=== PATIENT | male | born 1960 | race African-American/Black ===

== ENCOUNTER 2016-07-06 18:24 | Observation (INO) ==
--- NOTE | 2016-07-06 19:04 | Emergency Department Note ---
Marcie Couch Emily, am scribing for, and in the presence of, Timbo Chandler MD 18: 48. Ramesh Couch Robert M, MD, personally performed the services described in this documentation, ascribed by Rabia Jack in my presence, and it is both accurate and complete 904 . Arrival - Arrival Chief Complaint: Non-Specific Stated Complaint: diabetes ED Nursing Triage Note: Pt c/o High blood sugar (227), diarrhea and weakness since yesterday. Mode of Arrival: Ambulatory Limitations: No Limitations Source: Patient - History of Present Illness HPI Narrative: Pt is a 56 y/o male who came to ED with c/o diarrhea and fatigue that onset last night. Pt has associated sxs of lower abdomen pain, cold intolerance, and elevated glucose, but denies vomiting. Pt is IDDM. He reports having recent weight loss from 200 lbs in weight to now 126. He describes his diarrhea as watery but denies blood in stool. He hasn't taken abx recently either. Pt's glucose in ED, is 236. No other complaint/pain in ED. Pt is a smoker. Onset (ago): day(s) Consistency: constant Severity: moderate Severity scale (1-10): 6 Quality: aching Allergies/Adverse Reactions: Allergies Allergy/AdvReac Type Severity Reaction Status Date / Time No Known Allergies Allergy Unverified 05/03/16 17:43 Home Medications: Home Medications Medication Instructions Recorded Confirmed Type Atorvastatin [Lipitor] 20 mg PO BEDTIME 07/06/16 07/06/16 History Glimepiride 2 mg PO DAILY W/BREAKFAST 07/06/16 07/06/16 History Review of System - Review of System 12 point system: reviewed and no additional remarkable complaints except as stated - Review of System Constitutional: Present: weakness, weight loss. Absent: fever Gastrointestinal: Present: abdominal pain, diarrhea (watery, no blood). Absent : nausea, vomiting Skin: Absent: rash Neurological: Absent: headache Endocrine: Present: cold intolerance, fatigue Medical,Surgical,& Family Hx - Medical History Endocrine: History of: Diabetes Mellitus (NIDDM) - Social History Smoking Status: Current every day smoker Exam Vital Signs: Vital Signs Temperature 97.3 F L 07/06/16 19:15 Pulse Rate 89 07/06/16 19:15 Respiratory Rate 18 07/06/16 19:15 Blood Pressure 101/68 07/06/16 19:15 O2 Sat by Pulse Oximetry 99 07/06/16 19:14 - General General appearance: alert, in no apparent distress, other (bitemporal wasting) - Head Head exam: Present: atraumatic, normocephalic - Eye Eye exam: Present: PERRL, EOMI, scleral icterus, other (sunken orbits) - ENT ENT exam: Present: mucous membranes moist. Absent: mucous membranes dry - Neck Neck exam: Present: full ROM. Absent: tenderness - Chest Chest inspection: Present: symmetric chest wall rise. Absent: tenderness - Respiratory Respiratory exam: Present: normal lung sounds bilaterally. Absent: respiratory distress - Cardiovascular Cardiovascular exam: Present: regular rate, normal rhythm, normal heart sounds - Abdominal Exam Abdominal exam: Present: soft, tenderness (diffusely through lower quadrants), guarding. Absent: distention, rebound - Extremities Exam Extremities exam: Present: full ROM. Absent: tenderness, pedal edema - Neurological Exam Neurological exam: Present: alert, oriented X3, CN II-XII intact. Absent: motor sensory deficit - Psychiatric Psychiatric exam: Present: normal affect, normal mood - Skin Skin exam: Present: warm, dry Course - Consultations Consultation #1: Dr. Huerta will admit the patient to the hospitalist service. Time: 20:22 Results - Labs CBC & BMP: 07/06/16 18:52 07/06/16 18:52 - Diagnostic Findings Procedure: CT Abdomen and Pelvis: image reviewed by me (Findings suggestive of ampullary mass. Intrahepatic biliary ductal dilatation, common bile duct dilatation, and main pancreatic duct dilatation/distention noted.) Disposition Clinical Impression: Biliary obstruction, Hyperglycemia, Diarrhea Case discussed with: patient, patient's family Disposition: Still a Patient Condition: Stable Time of Disposition: 20:22
[2016-07-06 19:12] LABS: Basophils % 0.8 % (0.0-0.8); Eosinophils # 0.1 10*3/uL (0.0-0.87); Eosinophils % 1.9 % (0.00-10.9); Hematocrit 37.2 VOL% (42.0-52.0); Hemoglobin 12.2 GM/DL (14.0-18.0); Immature Granulocytes % 0.4 %; Immature Granulocytes Absolute 0.02 #; Lymphocytes % 19.9 % (21.2-54.2); Mean Corpuscular HGB Conc 32.8 GM/DL (32-36); Mean Corpuscular Hemoglobin 27 PG (27-34); Mean Corpuscular Volume 81.9 FL (87-102); Mean Platelet Volume 10.5 FL (9.6-12.0); Monocytes # 0.7 10*3/uL (0.11-0.8); Monocytes % 13.8 % (1.7-12.7); Neutrophils # 3.3 10*3/uL (1.4-7.4); Neutrophils % 63.2 % (38.7-73.9); Platelet Count 283 T/CUMM (130-400); Red Blood Count 4.54 MC/CUMM (3.8-5.5); Red Cell Distribution Width 15.1 % (9.3-17.3); White Blood Count 5.2 T/CUMM (4-12)
[2016-07-06 19:23] LABS: Apearance,Urine Slightly Hazy (Clear); Bilirubin,Urine Negative (Negative); Blood, Urine Small mg/dL (Negative); Calcium Oxalate Crystals,Urine Occasional /HPF (Few); Glucose,Urine (UA) >=500 mg/dL (Negative); Ketones,Urine Negative (Negative); Mucus,Urine Few /LPF (Occasional); Nitrite,Urine Negative (Negative); Protein,Urine 100 MG/DL; RBC,Urine 4 /HPF (0-4); Squamous Epithelial Cell,Urine Occasional /HPF (0-10); Urine Specific Gravity 1.021 (1.001-1.035); WBC,Urine 29 /HPF (0-6)
[2016-07-06 19:24] LABS: Urine Color Dark yellow (Yellow)
[2016-07-06 19:28] LABS: Barbiturates Screen,Urine Negative (Negative); Benzodiazepines Screen,Urine Negative (Negative); Cannabinoid Screen,Urine Positive (Negative); Opiate Screen,Urine Negative (Negative); Phencyclidine Screen,Urine Negative (Negative)
[2016-07-06 19:37] LABS: Calcium 8.5 MG/DL (8.5-10.1); Magnesium 2.4 MG/DL (1.8-2.4); Osmolality,Calculated 284.4 MOS/KG (273-304); Potassium 3.6 MMOL/L (3.5-5.1)
--- NOTE | 2016-07-06 19:41 | XRay Report ---
History: Chest pain. Shortness of breath Date: 07/06/2016 Study: Chest x-ray AP portable Comparison exam: May 03, 2016 chest x-ray The cardiomediastinal silhouette and pulmonary vasculature are unremarkable. The lungs and pleural spaces are clear. The osseous structures are unremarkable. Impression: No acute cardiopulmonary process. No significant interval change PROCEDURE INTERPRETED AT [facility] DEPARTMENT OF RADIOLOGY Final Report Signed by: Dr. Briana De La Rosa
[2016-07-06] MEDS ORDERED: GLUCAGON 1 MG VIAL IM PRN (20:41)
[2016-07-06] MEDS ORDERED: DEXTROSE 50% 25 GM/50 ML VIAL IV PRN (20:41)
[2016-07-06 20:44] LABS: Albumin 2.6 G/DL (3.4-5.0); Bilirubin,Direct 0.9 MG/DL (0.0-0.20); Bilirubin,Total 1.9 MG/DL (0.2-1.0); Total Protein 7.2 G/DL (6.4-8.3)
--- NOTE | 2016-07-06 20:45 | CT Report ---
History: Abdominal pain. Weight loss. Diarrhea Date: 07/06/2016 Study: CT abdomen and pelvis with IV contrast Comparison exam: No previous CT abdomen and pelvis Technique: Spiral CT sections were obtained from the lung bases to the pubic symphysis following 100 mL Omnipaque [address] exam was performed using one or more of the following dose reduction techniques: Automated exposure control, adjustment of the mA and/or kV according to patient size, or use of iterative reconstruction technique. CT abdomen: The partially visualized lung bases are clear. There is abnormal intrahepatic and extrahepatic biliary dilatation as well as pancreatic ductal dilatation. There is an approximately 2.3 cm area of abnormal soft tissue density which causes obstruction of the common bile duct. This presumably represents pancreatic carcinoma or cholangiocarcinoma. There is abnormal increased density in the fat surrounding the celiac artery. The fat planes are indistinct in this region and in the jonn hepatis region. There is moderate distention of the gallbladder. There is no focal hepatic mass. The abnormal soft tissue density in the region of the common bile duct is inseparable from the head of the pancreas. There is some lymphadenopathy in the jonn hepatis region. The spleen, adrenal glands are unremarkable. There is bilateral renal excretion without hydronephrosis. The kidneys are normal except for a rounded 8 mm simple cyst inferiorly in the left kidney. There is no aortic aneurysm. There is no price bowel obstruction. There is a paucity of abdominal fat present. CT pelvis: There is moderate nonspecific diffuse prominence of the prostate gland. There is no soft tissue mass in the pelvis. Impression: Presumed pancreatic malignancy causing common bile duct and pancreatic ductal obstruction. Jonn hepatis lymphadenopathy. 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 Briana De La Rosa
--- NOTE | 2016-07-06 20:52 | Hospitalist History & Physical ---
Assessment and Plan - Time spent with patient Time spent with patient: Greater than 30 minutes (1) Pancreas malignancy Status: Acute Assessment and plan: Presumably the cause of his weight loss and abnormal liver labs. Will consult GI and surgery and keep the patient n.p.o. at midnight. Current Visit: Yes (2) Diabetes mellitus Status: Acute Assessment and plan: Sliding scale insulin and Accu-Cheks. Current Visit: Yes (3) Diarrhea Status: Acute Assessment and plan: We will perform stool studies. Current Visit: Yes History of Present Illness Chief complaint: Weight loss and diarrhea. History of present illness: Mr. Javier is a 56 year old male with diabetes mellitus who presents with weight loss and diarrhea. Patient states he began having weight loss since last. Not exactly sure when it started. He weight 210 pounds and currently weighs 125. He states his appetite has not changed and eats a lot and still has not gained any weight. He was recently diagnosed with diabetes in April. He has also been having diarrhea off and on for several months however for the last few days has been persistent. Describes it as watery. He has been having intolerance to the cold for "a good while." He also endorses abdominal pain for several months off and on in his lower quadrants. He states if he eats too much he develops bloating. CT was performed in the ER which reveals possible pancreatic malignancy. Home Medications Medication Instructions Recorded Confirmed Type Atorvastatin [Lipitor] 20 mg PO BEDTIME 07/06/16 07/06/16 History Glimepiride 2 mg PO DAILY W/BREAKFAST 07/06/16 07/06/16 History Allergies Allergy/AdvReac Type Severity Reaction Status Date / Time No Known Allergies Allergy Unverified 05/03/16 17:43 Medical,Surgical,& Family Hx - Medical History Endocrine: History of: Diabetes Mellitus (NIDDM) - Social History Smoking Status: Current every day smoker 12 point system: reviewed and no additional remarkable complaints except as stated - Constitutional Constitutional: Present: fatigue, lethargy, weakness, weight loss. Absent: anorexia, chills, excessive sweating, weight gain - EENT Nose, mouth and throat: Absent: dysphagia, epistaxis, headache(s), hoarseness, lip swelling, nasal congestion, neck mass, neck pain, sore throat, throat swelling, tongue swelling, vertigo, other - Cardiovascular Cardiovascular: Absent: chest pain at rest, chest pain with activity, claudication, diaphoresis, dyspnea, dyspnea on exertion, edema, radiating jaw, neck or arm pain, orthopnea, palpitations - Gastrointestinal Gastrointestinal: Present: abdominal pain, bloating, change in bowel habits, cramping, diarrhea, early satiety. Absent: coffee ground emesis, constipation, dyspepsia, dysphagia, fecal incontinence, heartburn, hematemesis, hematochezia, loose stools, melena, nausea, odynophagia, vomiting, jaundice - Endocrine Endocrine: Present: cold intolerance. Absent: heat intolerance, polydipsia, polyphagia, polyuria Exam - Constitutional Vitals: Period Temp Pulse Resp BP Sys/Botello Pulse Ox Last 24 Hr 97.3 F-97.3 F 78-89 17-18 99-120/60-80 98-100 General appearance: no acute distress, under weight - Head Head exam: Present: normal inspection, normocephalic, atraumatic - Eye Eye exam: Present: EOMI Pupils: Present: LELA - ENT ENT exam: Present: normal exam - Neck Neck exam: Present: normal inspection - Respiratory Respiratory exam: Present: clear to auscultation bilaterally. Absent: rhonchi, wheezes - Cardiovascular Cardiovascular exam: Present: regular rate and rhythm. Absent: gallop, rubs, systolic murmur - GI/Abdominal GI/Abdominal exam: Present: normal bowel sounds, soft. Absent: distended, firm , guarding, tenderness (Lower quadrants), rebound - Extremities Exam Extremities exam: Present: normal inspection. Absent: calf tenderness, edema Results - Labs CBC & BMP: 07/06/16 18:52 07/06/16 18:52 Lab Results: I have reviewed the past 24 hour labs
[2016-07-06] MEDS: INSULIN LISPRO 100 UNIT/ML SUBCUT SCH (22:08)
[2016-07-07 06:29] LABS: Basophils % 0.5 % (0.0-0.8); Eosinophils # 0.3 10*3/uL (0.0-0.87); Eosinophils % 4.3 % (0.00-10.9); Hematocrit 35.5 VOL% (42.0-52.0); Hemoglobin 11.4 GM/DL (14.0-18.0); Immature Granulocytes % 0.2 %; Immature Granulocytes Absolute 0.01 #; Lymphocytes # 1.5 10*3/uL (1.4-4.0); Lymphocytes % 26.4 % (21.2-54.2); Mean Corpuscular HGB Conc 32.1 GM/DL (32-36); Mean Corpuscular Hemoglobin 26 PG (27-34); Mean Corpuscular Volume 82.2 FL (87-102); Mean Platelet Volume 9.7 FL (9.6-12.0); Monocytes # 0.9 10*3/uL (0.11-0.8); Monocytes % 16.2 % (1.7-12.7); Neutrophils % 52.4 % (38.7-73.9); Platelet Count 246 T/CUMM (130-400); Red Blood Count 4.32 MC/CUMM (3.8-5.5); White Blood Count 5.8 T/CUMM (4-12)
[2016-07-07 06:58] LABS: Burr Cells 1+; Eosinophils 4 % (0-10); Hypochromasia 1+; Lymphocytes 25 % (20-55); Platelet Estimate Adequate; Segmented Neutrophils 55 % (50-85); Total Cells Counted 100
[2016-07-07 07:14] LABS: Albumin 2.5 G/DL (3.4-5.0); Bilirubin,Total 1.5 MG/DL (0.2-1.0); Calcium 8.3 MG/DL (8.5-10.1); Osmolality,Calculated 279.1 MOS/KG (273-304); Potassium 3.1 MMOL/L (3.5-5.1); Thyroid Stimulating Hormone 2.12 uIU/ml (0.358-3.74); Total Protein 6.6 G/DL (6.4-8.3)
[2016-07-07] MEDS ORDERED: SODIUM CHLORIDE 0.9% 1,000 ML IV SCH (08:30)
[2016-07-07] MEDS: INSULIN LISPRO 100 UNIT/ML SUBCUT SCH ×4 (08:46→20:10)
--- NOTE | 2016-07-07 10:06 | Gastrointestinal Consult Note ---
Assessment and Plan (1) Abdominal pain Status: Acute Assessment and plan: 07/07-several month history of abdominal pain now to the left upper quadrant, with significant weight loss over the last 8 months. On admission, findings of elevated LFTs and CT of abdomen results noted below. Stool studies pending. Obtain tumor markers and plan for tentative ERCP, following Dr. De La Rosa's exam , tomorrow to further evaluate. Plan an addendum to followed by Dr. De La Rosa. Current Visit: Yes History of Present Illness Chief complaint: Abdominal pain History of present illness: Mr. Javier is a 56 year old male who was admitted to the hospital on yesterday with several month history of abdominal pain and weight loss. Patient states that approximately 8 months ago he was diagnosed with diabetes mellitus. Starting around this time he began to lose weight despite a good appetite and eating several times a day. He states that he weighed 210 pounds and now he is currently down to 125 pounds. He did not modify his diet when he was diagnosed with diabetes. Patient states not long after that he began having episodes of generalized abdominal pain. He states the pain was not associated with any other symptoms and was not precipitated by any known factors. He states since onset the pain now has become more localized to the left upper quadrant. Denies pain radiating to his back. Denies nausea vomiting associated with this. Denies fever or chills. Denies night sweats. Denies history of colon cancer or familial cancer that he can recall. He states that he has had diarrhea on and off for the past several months which is worse in the last few days. He describes it as watery and frequent but denies any melena or hematochezia. He does complain of some abdominal bloating when he eats at times. He states that he is continually told his PCP regarding his abdominal pain but no scans were done until this admission. He denies a history of alcohol use however states he does smoke half a pack of cigarettes a week and has a history of marijuana use for appetite and pain control per patient. He was positive for marijuana on his admission drug screen. On admission he was noted to have elevated LFTs with bilirubin at 1.9, AST 493, ALT 385, and alkaline phosphatase at 1225. Lipase is 131. CT of abdomen with IV contrast noted to show a presumed pancreatic malignancy, measuring 2.3 cm, causing obstruction of the common bile duct. No focal hepatic mass the abnormal soft tissue density noted to be inseparable from the head of the pancreas with froylan hepatitis lymphadenopathy. He has noted this morning to have hypokalemia and Dr. Eldridge to address this. Home Medications Medication Instructions Recorded Confirmed Type Atorvastatin [Lipitor] 20 mg PO BEDTIME 07/06/16 07/06/16 History Glimepiride 2 mg PO DAILY W/BREAKFAST 07/06/16 07/06/16 History Allergies Allergy/AdvReac Type Severity Reaction Status Date / Time No Known Allergies Allergy Unverified 05/03/16 17:43 Medical,Surgical,& Family Hx - Medical History Endocrine: History of: Diabetes Mellitus (NIDDM) - Social History Smoking Status: Current every day smoker Frequency of Alcohol Use: None Type of Drug Use: None 12 point system: reviewed and no additional remarkable complaints except as stated - Constitutional Constitutional: Present: as per HPI, weight loss - EENT Eyes: Present: as per HPI Ears: Present: as per HPI Nose, mouth and throat: Present: as per HPI - Cardiovascular Cardiovascular: Present: as per HPI - Respiratory Respiratory: Present: as per HPI - Gastrointestinal Gastrointestinal: Present: as per HPI, abdominal pain - Genitourinary Genitourinary: Present: as per HPI - Musculoskeletal Musculoskeletal: Present: as per HPI - Neurological Neurological: Present: as per HPI - Psychiatric Psychiatric: Present: as per HPI - Endocrine Endocrine: Present: as per HPI - Hematologic/Lymphatic Hematologic/Lymphatic: Present: as per HPI Exam - Constitutional Vitals: Period Temp Pulse Resp BP Sys/Botello Pulse Ox Last 24 Hr 98.1 F-98.3 F 69-88 12-20 109-121/70-87 97-100 General appearance: normal weight, under weight - Head Head exam: Present: normal inspection, normocephalic - Eye Eye exam: Present: other (Lids and conjunctive are unremarkable). Absent: scleral icterus - ENT ENT exam: Present: normal exam, normal oropharynx - Neck Neck exam: Present: normal inspection - Respiratory Respiratory exam: Present: clear to auscultation bilaterally. Absent: rales, rhonchi, wheezes - Cardiovascular Cardiovascular exam: Present: regular rate and rhythm. Absent: diastolic murmur , JVD, systolic murmur - GI/Abdominal GI/Abdominal exam: Present: normal bowel sounds, tenderness (Left upper quadrant ), soft. Absent: ascites, distended, mass, organomegaly - Extremities Exam Extremities exam: Present: normal inspection, full ROM - Back Exam Back exam: Present: normal inspection - Neurological Exam Neurological exam: Present: alert, oriented X3 - Psychiatric Psychiatric exam: Present: normal affect, normal mood - Skin Skin exam: Present: normal color, warm, dry Results - Labs CBC & BMP: 07/07/16 06:14 07/07/16 06:14 Lab Results: I have reviewed the past 24 hour labs - Diagnostic Findings Procedure: CT Abdomen and Pelvis: report reviewed by me
[2016-07-07] MEDS: POTASSIUM CHLORIDE RIDER 10 MEQ in PREMIX 1 EACH IV SCH ×9 (10:08→17:37)
[2016-07-07 11:36] LABS: Cancer Antigen 19-9 313.8 U/ML (0-37); Carcinoembryonic Antigen 2.4 NG/ML (0.0-5.0)
--- NOTE | 2016-07-07 13:01 | General Surg History&Physical ---
Assessment and Plan (1) Pancreas malignancy Status: Acute Assessment and plan: Biliary obstruction likely associated with pancreatic mass but cannot exclude cholangiocarcinoma at this time. LFTs are currently elevated but stable. Surgically, it is anticipated the patient will require Whipple procedure which unfortunately is not a procedure performed at this facility. This was discussed with Dr. Eldridge who will initiate transfer to [facility]. Current Visit: Yes History of Present Illness Chief complaint: Abd pain History of present illness: Mr. Javier is a 56 year old male with past medical history of diabetes mellitus presenting with diffuse for progressive abdominal pain as well as approximately 100 pound weight loss over the past 1 year. Apparently he has been recently diagnosed with diabetes mellitus to which he has responded to therapy appropriately. He separately reports he has had weight loss despite no changes in appetite or consumption of was described as greater than 100 pounds over the course of the year. He describes diffuse, vague abdominal pain without any localizing factors which up until this past week had no associated nausea vomiting or diarrhea. He developed diarrhea approximately 3-4 days ago without fever, chills, rigors, arthralgias or myalgias. CT scan in the emergency department revealed suspected malignant pancreatic lesion with biliary obstruction for which surgical recommendations have been requested. Home Medications Medication Instructions Recorded Confirmed Type Atorvastatin [Lipitor] 20 mg PO BEDTIME 07/06/16 07/06/16 History Glimepiride 2 mg PO DAILY W/BREAKFAST 07/06/16 07/06/16 History Allergies Allergy/AdvReac Type Severity Reaction Status Date / Time No Known Allergies Allergy Unverified 05/03/16 17:43 Medical,Surgical,& Family Hx - Medical History Endocrine: History of: Diabetes Mellitus (NIDDM) - Surgical History Additional Surgical History: None - Social History Smoking Status: Current every day smoker Frequency of Alcohol Use: None Type of Drug Use: None Functional capacity: independent ambulation Exam - Constitutional Vitals: Period Temp Pulse Resp BP Sys/Botello Pulse Ox Last 24 Hr 98.1 F-98.3 F 69-88 12-20 109-121/70-87 97-100 General appearance: no acute distress - Head Head exam: Present: normal inspection, normocephalic - Eye Eye exam: Present: scleral icterus - ENT Mouth exam: Present: normal external inspection, normal voice - Neck Neck exam: Present: normal inspection - Respiratory Respiratory exam: Present: clear to auscultation bilaterally - Cardiovascular Cardiovascular exam: Present: RRR - GI/Abdominal GI/Abdominal exam: Present: normal bowel sounds, soft, other (Diffuse tenderness with no localized tenderness; no organomegaly appreciated ). Absent : distended, firm, rebound - Extremities Exam Extremities exam: Absent: calf tenderness, edema - Neurological Exam Neurological exam: Present: alert, oriented X3 - Skin Skin exam: Present: normal color, warm - Constitutional Constitutional: Present: as per HPI - Gastrointestinal Gastrointestinal: Present: as per HPI. Absent: coffee ground emesis, early satiety, hematemesis, hematochezia - Genitourinary Genitourinary: Absent: dysuria, flank pain - Musculoskeletal Musculoskeletal: Present: as per HPI Hematologic/Lymphatic: Absent: easy bleeding, easy bruising Results - Labs CBC & BMP: 07/07/16 06:14 07/07/16 06:14 - Diagnostic Findings Procedure: Chest x-ray: image reviewed by me, report reviewed by me, CT Abdomen and Pelvis: image reviewed by me, report reviewed by me
--- NOTE | 2016-07-07 13:13 | Hospitalist Progress Note ---
Assessment and Plan (1) Pancreas malignancy Status: Acute Assessment and plan: Dr. De La Rosa to see and possible ercp in am, IR for PTC drain to common bile duct and biopsy Current Visit: Yes (2) Diarrhea Status: Acute Assessment and plan: stool studies Current Visit: Yes (3) Diabetes mellitus Status: Acute Assessment and plan: hemoglobin A1c, bs check Current Visit: Yes (4) Liver enzyme elevation Status: Acute Assessment and plan: due to biliary obstruction, cont to monitor, check hepatitis, ERCP in am Current Visit: Yes Hospitalist: Subjective Interval history: Spoke to surgeon at [facility]. Based on the CT report patient is not resectable. She recommended that IR put a PTC drain in the common bile duct and to get oncology involved santo. Exam - Constitutional Vitals: Period Temp Pulse Resp BP Sys/Botello Pulse Ox Last 24 Hr 98.1 F-98.3 F 69-88 12-20 109-121/70-87 97-100 Exam: Heart Rate-[RRR] Lungs-[CTAB] GI-[+bs soft, NT] Ext-[no edema] Neuro [Motor 5/5], [alert and oriented times 3] psych [normal mood and affect] General [no acute distress] Results - Labs CBC & BMP: 07/07/16 06:14 07/07/16 06:14 Lab Results: I have reviewed the past 24 hour labs - Diagnostic Findings Procedure: Chest x-ray: report reviewed by me (Nothing acute), CT Abdomen and Pelvis: report reviewed by me (Pancreatic mass with common bile duct and pancreatic duct involvement. Encasement of the celiac artery.)
[2016-07-07] MEDS ORDERED: POTASSIUM CHLORIDE INJ 40 MEQ in SODIUM CHLORIDE 0.9% 1,000 ML IV SCH (13:27)
[2016-07-07 14:05] LABS: INR 1.1; PT Patient Result 11.9 SECS; Partial Thromboplastin Time 30.3 SECS (0-40)
[2016-07-07 15:22] LABS: Hepatitis A Ab IgM Quant 0.12 Index; Hepatitis A Ab IgM Result Negative (Negative); Hepatitis B Core IgM Quant 0.17 Index; Hepatitis B Core IgM Result Negative (Negative); Hepatitis B Surface Ag Quant < 0.10 Index; Hepatitis B Surface Ag Result Negative (Negative); Hepatitis C Virus Ab Quant 0.14 Index; Hepatitis C Virus Ab Result Negative (Negative)
--- NOTE | 2016-07-07 17:22 | Event Note ---
When reviewing the CT imaging of the abdomen/pelvis, there is considerable pancreatic and biliary ductal dilatation with a presumed hypoenhancing mass near the head of the pancreas. Unfortunately, This questioned lesion at the head of the pancreas is poorly defined, and there is significantly limited access for percutaneous biopsy. There is an additional slightly prominent celiac axis node, which may be reactive although metastatic adenopathy cannot be excluded. This node is also not well positioned for percutaneous biopsy. If the ERCP and common duct brushings are inconclusive, possible transfer for ERCP with endoscopic ultrasound may be necessary for tissue diagnosis. If transfer for this reason is not a option and tissue diagnosis is required, transgastric/transduodenal percutaneous biopsy versus transhepatic cholangiogram and biopsy could be considered.
[2016-07-07] MEDS: SODIUM CHLOR 0.9% KCL 40 MEQ 40 MEQ/1,000 ML BAG IV SCH (18:41)
[2016-07-08] MEDS: SODIUM CHLOR 0.9% KCL 40 MEQ 40 MEQ/1,000 ML BAG IV SCH ×2 (02:40→10:33)
[2016-07-08 06:22] LABS: Basophils % 0.4 % (0.0-0.8); Eosinophils # 0.2 10*3/uL (0.0-0.87); Eosinophils % 4.6 % (0.00-10.9); Hematocrit 35.8 VOL% (42.0-52.0); Hemoglobin 11.5 GM/DL (14.0-18.0); Immature Granulocytes % 0.2 %; Immature Granulocytes Absolute 0.01 #; Lymphocytes # 1.4 10*3/uL (1.4-4.0); Mean Corpuscular HGB Conc 32.1 GM/DL (32-36); Mean Corpuscular Hemoglobin 27 PG (27-34); Mean Corpuscular Volume 82.5 FL (87-102); Mean Platelet Volume 10.2 FL (9.6-12.0); Monocytes % 20.3 % (1.7-12.7); Neutrophils # 2.2 10*3/uL (1.4-7.4); Neutrophils % 45.5 % (38.7-73.9); Platelet Count 255 T/CUMM (130-400); Red Blood Count 4.34 MC/CUMM (3.8-5.5); Red Cell Distribution Width 15.1 % (9.3-17.3); White Blood Count 4.8 T/CUMM (4-12)
[2016-07-08 06:51] LABS: Burr Cells Slight; Eosinophils 6 % (0-10); Hypochromasia 1+; Lymphocytes 35 % (20-55); Ovalocytes Slight; Platelet Estimate Adequate; Segmented Neutrophils 42 % (50-85); Total Cells Counted 100
[2016-07-08 07:14] LABS: Albumin 2.4 G/DL (3.4-5.0); Bilirubin,Total 1.8 MG/DL (0.2-1.0); Calcium 8.3 MG/DL (8.5-10.1); Osmolality,Calculated 277.3 MOS/KG (273-304); Potassium 4.4 MMOL/L (3.5-5.1); Total Protein 6.7 G/DL (6.4-8.3)
--- NOTE | 2016-07-08 07:48 | Oncology Consult Note ---
Assessment and Plan - Time spent with patient Time spent with patient: Greater than 30 minutes (1) Pancreas malignancy Status: Acute Assessment and plan: Patient needs ERCP with stent placement. Brushings from this will be low yield but hopefully we can get some type of atypical cell pointing toward malignancy. His lack of insurance is our biggest sulaiman to overcome at this point as far as initiating therapy. I would honestly prefer to refer him to an outside facility since I will be very limited on what I can offer here without insurance coverage, but he has no means to travel. I will give him at least 2 weeks after ERCP being done to allow his liver to recover and then we can consider some type of outpatient treatment and further workup. His prognosis is very poor with a life expectancy of less than 12 months even with chemotherapy. Current Visit: Yes (2) Weight loss Status: Acute Current Visit: Yes (3) Biliary obstruction Status: Acute Current Visit: Yes (4) Diarrhea Status: Acute Current Visit: Yes (5) Diabetes mellitus Status: Acute Current Visit: Yes (6) Abdominal pain Status: Acute Current Visit: Yes (7) Liver enzyme elevation Status: Acute Current Visit: Yes History of Present Illness History of present illness: Mr. Javier is a 56 year old male with recent 100 pound weight loss and abdominal pain who was evaluated in the emergency room on 07/06/2016 and found to have a poorly defined pancreatic head mass that involved the major vessels and obstructed the common bile duct. There is extra and intrahepatic ductal dilatation. There is also froylan hepatis lymphadenopathy. His CA-19-9 level is greater than 300. He states that he has been feeling poorly now for quite a few months. Has 100 pound weight loss was over the past 10 months. His energy level has been slowly decreasing as well. He has never really had any type of medical follow-up. He has no type of insurance. There is no good way to biopsy this mass from a percutaneous standpoint. He is scheduled to have a ERCP today with stent placement and hopefully brushings will give a diagnosis. If his brushings are negative, I am uncertain how we will get a diagnosis since I will not be able to refer him to a tertiary center without any kind of insurance. Case management is working with him to get him on disability and Medicaid. I had a lengthy discussion with him this morning about his very poor prognosis and life expectancy of less than 1 year. His only option at this point is palliative chemotherapy. He is not a surgical candidate due to the involvement of the major vessels. There is no place for radiotherapy for such an extensive cancer either. Once a stent is placed he needs at least 2 weeks of recovery time before we even consider starting him on chemotherapy. At some point he will need a Mediport placed for easy access. I would also like to obtain a PET scan down the road as well. Once his GI evaluation and workup is complete, he can be discharged home and I can do further workup in the outpatient setting. Home Medications Medication Instructions Recorded Confirmed Type Atorvastatin [Lipitor] 20 mg PO BEDTIME 07/06/16 07/06/16 History Glimepiride 2 mg PO DAILY W/BREAKFAST 07/06/16 07/06/16 History Allergies Allergy/AdvReac Type Severity Reaction Status Date / Time No Known Allergies Allergy Unverified 05/03/16 17:43 Medical,Surgical,& Family Hx - Medical History Endocrine: History of: Diabetes Mellitus (NIDDM) - Social History Smoking Status: Current every day smoker Frequency of Alcohol Use: None Type of Drug Use: None 12 point system: reviewed and no additional remarkable complaints except as stated - Constitutional Constitutional: Present: fatigue, weight loss - Gastrointestinal Gastrointestinal: Present: abdominal pain, change in bowel habits, diarrhea, early satiety Exam - Constitutional Vitals: Period Temp Pulse Resp BP Sys/Botello Pulse Ox Last 24 Hr 97.3 F-99.5 F 64-75 18-19 97-117/59-74 99-100 General appearance: no acute distress, under weight - Head Head Exam: Present: normocephalic, atraumatic - Eye Eye Exam: Present: EOMI Pupils: Present: PERRL - ENT ENT exam: Present: normal exam, normal oropharynx - Neck Neck exam: Absent: lymphadenopathy, thyromegaly - Respiratory Respiratory exam: Present: CTAB. Absent: wheezes - Cardiovascular Cardiovascular exam: Present: RRR. Absent: JVD, tachycardia - GI/Abdominal GI/Abdominal exam: Present: firm. Absent: ascites, distended, mass - Neurological Exam Neurological exam: Present: alert, oriented X3 - Psychiatric Psychiatric exam: Present: normal affect, normal mood - Skin Skin exam: Present: warm, dry Results - Labs CBC & BMP: 07/08/16 05:53 07/08/16 05:54 Lab Results: I have reviewed the past 24 hour labs - Diagnostic Findings Procedure: CT Abdomen and Pelvis: report reviewed by me, image reviewed by me
--- NOTE | 2016-07-08 08:16 | EKG Report ---
Stationary ECG Study [facility] Test Date: 07/08/2016 7:31:01 AM Pat Name: PASTOR GOEL Department: Room: 543 Gender: M Cemetery Worker: SHIRA : 1960 Requested by: Yamel Robert Order Number: [id number] Reading MD: JOSUE PULLIAM Intervals [place] Rate: 65 P: 81 MA: 143 QRS: 65 QRSD: 85 T: 59 QT: 380 QTc: 392 Interpretive Statements SINUS RHYTHM Electronically Signed On 07-10-16 11:16:35 CDT by JOSUE PULLIAM [email or web address]
[2016-07-08] MEDS: INSULIN LISPRO 100 UNIT/ML SUBCUT SCH ×4 (09:49→20:52)
[2016-07-08] MEDS ORDERED: fentaNYL 100 MCG/2 ML VIAL ONE (13:10)
--- NOTE | 2016-07-08 13:10 | History and Physical Update ---
History and Physical Update - History and Physical H&P was reviewed, the patient examined and there: are no changes in the patients condition since last H&P was completed. - Physical Exam Mental Status: alert and oriented Heart: regular rate and rhythm Lung: clear to auscultation Abdomen: within normal limits Vitals: within normal limits
[2016-07-08] MEDS ORDERED: PROPOFOL 200 MG/20 ML VIAL IV ONE (13:13)
[2016-07-08] MEDS ORDERED: LIDOCAINE 2% 5 ML VIAL ONE (13:13)
[2016-07-08] MEDS ORDERED: GLUCAGON 1 MG VIAL ONE (13:22)
--- NOTE | 2016-07-08 14:09 | Operative Note ---
Date of procedure: 07/08/16 Pre-op diagnosis: Pancreatic mass, elevated liver tests with weight loss Procedure: Procedure: Endoscopic retrograde cholangiopancreatography with common bile duct sphincterotomy, common bile duct stricture brushings, and common bile duct stent placement Brief clinical abstract: Patient is a 56-year-old male who presents with recent vague upper abdominal pain, over 70 pound weight loss, and found to have elevated liver tests with pancreatic mass on CT. Procedure findings: After informed consent was obtained, patient was placed in the prone position. Therapeutic video duodenoscope was inserted into the upper soft and blind fashion with no resistance encountered. Esophageal mucosa appeared normal. Stomach was examined including retroflex view of the cardia and fundus with no abnormality seen. The pyloric channel, duodenal bulb, second and third portion of the duodenum including the major papilla appeared normal. Sphincterotome was used and initially pancreatogram obtained. Pancreatic duct filled into the neck of the pancreas where there was an abrupt cut off consistent with malignancy. The endoscope was repositioned. Common bile duct cannulation was somewhat difficult as there was a separate opening at the ampulla into the bile duct. Finally, deep cannulation of the common bile duct was achieved with sphincterotome using 0.035 inch guidewire. Biliary tree was filled with contrast. Approximately 2 cm above the common bile duct opening there was a stricture approximately 1.5 cm in length. It was irregular and shouldered consistent with malignancy. Moderate biliary dilation above this was noted. Intrahepatics were mildly dilated. An approximately 1 cm common bile duct sphincterotomy was performed. The sphincterotome was withdrawn leaving the guidewire in place. Cytology brushings of the stricture were obtained using fluoroscopic guidance. It was noted that quite a bit of blood passed through the sphincterotomy opening with brushings of the stricture. 2 separate passes were made with the brush with specimens obtained for cytology. The cytology brush was then removed and 10 Swiss by 7 cm common bile duct stent was placed using endoscopic and fluoroscopic guidance. This was in excellent position. The endoscope was then removed. He appeared to tolerate the procedure well. Impression: #1 double duct sign-consistent with pancreatic carcinoma #2 status post common bile duct stent placement Recommendations: Await cytology from above. Can advance diet today as tolerated. Anesthesia: MAC Surgeon / Physician: Frantz De La Rosa Estimated blood loss: minimal Specimens: other (Common bile duct stricture brushings) Disposition: post procedure unit Results - Labs CBC & BMP: 07/08/16 05:53 07/08/16 05:54 Discharge Plan - Discharge Medications No Action Glimepiride 2 mg PO DAILY W/BREAKFAST Atorvastatin [Lipitor] 20 mg PO BEDTIME - Follow Up or Referral - Forms/Instructions
--- NOTE | 2016-07-08 14:16 | Anesthesia Post-Op ---
Anesthesia Post OP - Post Ansesthetic Evaluation Patient seen in post op: Yes Resp: within normal limits CV: within normal limits Mental: within normal limits Temp: within normal limits [id number]: within normal limits Nausea and Vomiting: within normal limits Pain: within normal limits
--- NOTE | 2016-07-08 15:08 | Fluoroscopy Report ---
Exam: FL ERCP w sphincterotomy Date: 07/08/2016 12:00 AM Comparison: CT abdomen and pelvis 07/06/2016 Indication: Obstructed pancreatic mass with elevated liver tests Technique:[Fluoroscopy, 7.1 minutes documented. 30 cc of Omnipaque [address] Jaylen De La Rosa. 5 films were obtained.] Findings: Abrupt cut off in the pancreatic duct in the head of the pancreas. Dilatation of the intrahepatic ducts, common hepatic duct, and proximal common bile duct. Irregular stricture in the common bile duct at the level of the head of the pancreas. Sphincterotomy performed. Advancement of guidewire with insertion of a 10 cm 7 Arabic CBD stent. The stent appears to be in satisfactory position. Impression: Findings consistent with probable pancreatic carcinoma with obstruction of the pancreatic duct and malignant stricture of the common bile duct. There is associated bile duct dilatation. Satisfactory insertion of CBD stent. PROCEDURE INTERPRETED AT [facility] DEPARTMENT OF RADIOLOGY Final Report Signed by: Dr. Palak Resendiz
[2016-07-08] MEDS ORDERED: MORPHINE 2 MG/1 ML SYRINGE IV PRN (15:34)
--- NOTE | 2016-07-08 15:37 | Hospitalist Progress Note ---
Assessment and Plan (1) Pancreas malignancy Status: Acute Assessment and plan: Dr. De La Rosa placed a stent today. morphine prn pain Current Visit: Yes (2) Diarrhea Status: Acute Assessment and plan: resolved Current Visit: Yes (3) Diabetes mellitus Status: Acute Assessment and plan: hemoglobin A1c 8.2, amaryl 2 mg po daily Current Visit: Yes (4) Liver enzyme elevation Status: Acute Assessment and plan: cmp in am Current Visit: Yes Hospitalist: Subjective Interval history: Spoke with Dr. Perez. He plans for patient to start chemotherapy in 2 weeks. We are still attempting to get him Medicaid for coverage. Dr. Perez feels he has less than a year by chemotherapy. Exam - Constitutional Vitals: Period Temp Pulse Resp BP Sys/Botello Pulse Ox Last 24 Hr 97.3 F-99.4 F 64-78 16-20 97-126/59-077 24-100 Exam: Heart Rate-[RRR] Lungs-[CTAB] GI-[+bs soft, NT] Ext-[no edema] Neuro [Motor 5/5], [alert and oriented times 3] psych [normal mood and affect] General [no acute distress] Results - Labs CBC & BMP: 07/08/16 05:53 07/08/16 05:54 Lab Results: I have reviewed the past 24 hour labs
[2016-07-08] MEDS ORDERED: ATORVASTATIN 20 MG TABLET PO SCH (21:00)
[2016-07-09 07:36] LABS: Albumin 2.5 G/DL (3.4-5.0); Calcium 8.6 MG/DL (8.5-10.1); Osmolality,Calculated 272.7 MOS/KG (273-304); Potassium 4.1 MMOL/L (3.5-5.1); Total Protein 6.8 G/DL (6.4-8.3)
[2016-07-09] MEDS: INSULIN LISPRO 100 UNIT/ML SUBCUT SCH ×2 (08:00→11:21)
[2016-07-09] MEDS ORDERED: GLIMEPIRIDE 2 MG TABLET PO SCH (08:00)
--- NOTE | 2016-07-09 08:03 | Oncology Progress Note ---
Assessment and Plan (1) Weight loss Status: Acute Current Visit: Yes (2) Biliary obstruction Status: Acute Current Visit: Yes (3) Diarrhea Status: Acute Current Visit: Yes (4) Diabetes mellitus Status: Acute Current Visit: Yes (5) Abdominal pain Status: Acute Current Visit: Yes (6) Liver enzyme elevation Status: Acute Current Visit: Yes Oncology Subjective PN Interval history: Mr. Javier underwent ERCP yesterday with stent placement. His bilirubin level is slightly improved today. He still has some liver dysfunction based on liver enzymes. He can be discharged from an oncology standpoint. I will be out of town from today until next week. Please make an appointment for him to see me at some point next week with a CBC, CMP, and CA-19-9. Also please be certain that case management has initiated the proper paperwork for Medicaid before discharge. If he does stay in the hospital until I return, I will see him again on Thursday, July 14. Exam - Constitutional Vitals: Period Temp Pulse Resp BP Sys/Botello Pulse Ox Last 24 Hr 96.6 F-98.5 F 67-78 16-20 98-126/62-077 24-100 Results - Labs CBC & BMP: 07/08/16 05:53 07/09/16 05:56
--- NOTE | 2016-07-09 08:40 | Gastrointestinal Progress Note ---
Assessment and Plan (1) Abdominal pain Status: Acute Assessment and plan: 07/09-post ERCP with findings noted. LFTs trending downward. Advance to soft diet today. Plan an addendum to followed by Dr. De La Rosa. 07/07-several month history of abdominal pain now to the left upper quadrant, with significant weight loss over the last 8 months. On admission, findings of elevated LFTs and CT of abdomen results noted below. Stool studies pending. Obtain tumor markers and plan for tentative ERCP, following Dr. De La Rosa's exam , tomorrow to further evaluate. Plan an addendum to followed by Dr. De La Rosa. Current Visit: Yes Gastroenterology - PN: Subj Interval history: CC: Pancreatic mass Patient is seen awake and alert with family at bedside. He is post ERCP on yesterday with findings of possible pancreatic carcinoma and common bile duct stent placement. Cytology is pending at this time. Patient denies any abdominal pain other than some mild soreness. Denies nausea vomiting. States his appetite is improving and request to advance his diet. Abdomen is soft, nontender. LFTs are noted to be trending downward at this time. ROS: Denies shortness of breath or chest pain Exam (Progress Note) - Constitutional Vitals: Period Temp Pulse Resp BP Sys/Botello Pulse Ox Last 24 Hr 96.6 F-98.5 F 67-78 16-20 98-126/62-077 24-100 - Other Additional findings: General appearance: normal weight, under weight - Head Head exam: Present: normal inspection, normocephalic - Eye Eye exam: Present: other (Lids and conjunctive are unremarkable). Absent: scleral icterus - ENT ENT exam: Present: normal exam, normal oropharynx - Neck Neck exam: Present: normal inspection - Respiratory Respiratory exam: Present: clear to auscultation bilaterally. Absent: rales, rhonchi, wheezes - Cardiovascular Cardiovascular exam: Present: regular rate and rhythm. Absent: diastolic murmur , JVD, systolic murmur - GI/Abdominal GI/Abdominal exam: Present: normal bowel sounds, tenderness (Left upper quadrant ), soft. Absent: ascites, distended, mass, organomegaly - Extremities Exam Extremities exam: Present: normal inspection, full ROM - Back Exam Back exam: Present: normal inspection - Neurological Exam Neurological exam: Present: alert, oriented X3 - Psychiatric Psychiatric exam: Present: normal affect, normal mood - Skin Skin exam: Present: normal color, warm, dry Results - Labs CBC & BMP: 07/08/16 05:53 07/09/16 05:56 Lab Results: I have reviewed the past 24 hour labs
--- NOTE | 2016-07-09 10:47 | Pathology Report from [facility] ---
ACCESSION # : [id number] PATIENT NAME : Janes Javier ORDERING DR : Ayden Dolan MD CLINICAL HX: Weight loss, abd pain POST-OP DX: Same SPECIMEN INFO: Brushing- Bile duct, 1 brush received in cytolyt fixative CLASS: III CLASS COMMENTS: A few atypical cells present (scanty specimen).CELL BLOCK: Same CLASS LEGEND: CLASS 0 Material inadequate for diagnosis because of (see comment) CLASS I Absence of atypical or abnormal cells CLASS II Atypical Cytology but no evidence of malignancy CLASS III Cytology suggestive of but not conclusive for malignancy CLASS IV Cytology strongly suggestive of malignancy CLASS V Cytology conclusive for malignancy SERVICE DATE: 07/08/2016 REPORT DATE: 07/09/2016 PATHOLOGIST: Cory Santa [facility]
--- NOTE | 2016-07-09 10:52 | Discharge Summary ---
<Aleksandar Aguiar - Last Filed: 07/09/16 11:08> Hospital Course - Hospital Course Hospital Course: The patient is a 56 year old male who was admitted on 07/06/2016 with weight loss and diarrhea thought to be due to pancreatic malignancy. - Time spent with patient Time with patient DS: Greater than 30 minutes Specialty Discharge - Follow Up or Referrals Follow up with: Jae Perez MD [Physician] - 2 Weeks Discharge Plan - Discharge Data Disposition: Disch To Home/Self Care - Discharge Medications New Hydrocodone/Acetaminophen [[place] 7.5-325 Tablet] 1 each PO Q6H PRN #30 tablet PRN Reason: Abdominal Pain Continue Atorvastatin [Lipitor] 20 mg PO BEDTIME #30 tablet Glimepiride 2 mg PO DAILY W/BREAKFAST #30 tablet - Follow Up or Referral Follow Up: Jae Perez MD [Physician] - 2 Weeks - Forms/Instructions Exam - Constitutional Vitals: Period Temp Pulse Resp BP Sys/Botello Pulse Ox Last 24 Hr 96.6 F-98.5 F 67-78 16-20 98-126/62-077 24-100 Discharge Results Procedures and tests throughout hospitalization: Pending Orders 07/06/16 20:43 Stool Culture Routine Stool for WBCs Routine stool [C. Diff Toxins A & B] Routine 07/07/16 13:24 IR biliary duct dilation Stat 07/10/16 04:00 CMP [Comprehensive Metabolic Panel] IN AM Labs on day of discharge: Labs from last 24 hours 07/09/16 07/09/16 07/08/16 07:12 05:56 20:09 Sodium 138 Potassium 4.1 Chloride 104 Carbon Dioxide 28 Anion Gap 10.1 BUN 6 L Creatinine 0.60 L GFR Calculation 123 BUN/Creatinine Ratio 10.00 Glucose 96 POC Glucose 95 206 H Calculated Osmolality 272.7 L Calcium 8.6 Total Bilirubin 1.00 AST 399 H ALT 358 H Alkaline Phosphatase 1129 H Total Protein 6.8 Albumin 2.5 L Globulin 4.3 H Albumin/Globulin Ratio 0.5 L 07/08/16 15:56 Sodium Potassium Chloride Carbon Dioxide Anion Gap BUN Creatinine GFR Calculation BUN/Creatinine Ratio Glucose POC Glucose 106 Calculated Osmolality Calcium Total Bilirubin AST ALT Alkaline Phosphatase Total Protein Albumin Globulin Albumin/Globulin Ratio DS: Provider Date of admission: 07/06/16 20:41 Primary care physician: . No PCP Attending physician on admission: Odilia Eldridge MD Consults: 07/06/16 20:49 Consult to Physician [CONS] Routine Comment: Pancreatic malignancy Consulting Provider: Frantz De La Rosa Consult to Specialist Group: Gastroenterology When should Consulting Provider be notified: In am 07/06/16 20:53 Consult to Physician [CONS] Routine Comment: Pancreatic malignancy Consulting Provider: Sarthak Ruiz Consult to Specialist Group: Surgery When should Consulting Provider be notified: In am Person Notified: anam Date Notified: 07/07/16 Time Notified: 12:36 07/07/16 13:23 Consult to Physician [CONS] Routine Comment: pancreatic cancer Consulting Provider: Jae Perez Consulting Provider Notified: Yes When should Consulting Provider be notified: Now Person Notified: Baylee Date Notified: 07/07/16 Time Notified: 15:04 07/07/16 14:34 Consult to Case Mgmt/Social Srvs [CONS] Routine Reason for Case Mgmt/Social Srvs: Other Consult Comment: Please assist with Medicaid application. Pt has advanced cancer. Discharging clinician: Aleksandar JAMES Expected date of discharge: 07/09/16 <Odilia Eldridge - Last Filed: 07/09/16 11:34> Hospital Course - Hospital Course Hospital Course: Patient seen and examined. Hospital course reviewed and edited. 56-year-old -[place] male with a history of diabetes reports weight loss and diarrhea. No stool studies were collected. CT of the abdomen showed presumed pancreatic malignancy with evidence of obstruction of the common bile duct and pancreatic duct. Jonn hepatis lymphadenopathy was seen. 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 Dr. De La Rosa from GI and Dr. Perez from oncology were consulted. An ERCP was performed on 07/08/2016 with a common bile duct sphincterotomy and a stent placement. Patient had some brushings which were reported to be atypical but final identification pending. We consulted Dr. Dolan from interventional radiology but he did not feel he could get an adequate biopsy of this pancreatic mass safely. Dr. Perez from oncology recommends chemotherapy beginning about 2 weeks. We are working with Medicaid to get him insurance. His liver enzymes are improving after stent placement. His CA 19-9 is over 300. His hemoglobin A1c 8.2 but his blood sugars are running low as he has not been eating well. Discharge home today to follow-up with Dr. Perez on July 14. . - Time spent with patient Time with patient DS: Less than 30 minutes (25 min) Diagnosis - Discharge Diagnosis (1) Pancreas malignancy Status: Deleted (2) Diarrhea Status: Acute (3) Diabetes mellitus Status: Acute (4) Liver enzyme elevation Status: Acute Discharge Plan - Discharge Data Condition at Discharge: Stable Discharge Diet: heart healthy Activity: resume usual activities as tolerated Hygiene: no restrictions Weight Bearing at Discharge: full weight bearing Exam - Constitutional General appearance: no acute distress, under weight - Respiratory Respiratory exam: Present: clear to auscultation bilaterally. Absent: rhonchi, wheezes - Cardiovascular Cardiovascular exam: Present: regular rate and rhythm - GI/Abdominal GI/Abdominal exam: Present: normal bowel sounds, tenderness, soft - Neurological Exam Neurological exam: Present: alert, oriented X3
[2016-07-09 11:34] VITALS: BP 119/76
== END 2016-07-09 13:30 | disposition home or self-care (01) ==
LOC: N.EDINP 18:24 → N.ED 18:24 → N.5E 21:10
PROVIDERS: ADMIT Internal Medicine; ATTEND Internal Medicine